=== PATIENT | female | born 1940 | race Caucasian/White ===

== ENCOUNTER 2020-07-09 09:22 | Outpatient (CLI) | payer MEDICARE ==
--- NOTE | 2020-07-09 10:14 | RAD ---
CHEST 2 VIEWS: Date: 07/09/2020 HISTORY: Dyspnea. FINDINGS: Total reverse left shoulder arthroplasty. Dorsal column stimulator leads overlie the lower mid thorac ic spine. Bilateral linear and interstitial parenchymal changes, having more the appearance of chroni c change. Mild left hemidiaphragm elevation. No confluent pneumonia, overt edema, or pleural effusion . Anterior cervical fusion changes lower cervical spine. IMPRESSION: 1. Evidence for bilateral chronic lung change. 2. No significant acute process. 3. Prominent atherosclerotic ectatic changes of aorta. 4. No old prior exams. POS: AH
== END 2020-07-09 09:23 | disposition home or self-care (01) ==
LOC: BICRAD 09:22
PROVIDERS: ATTEND Internal Medicine Critical Care Medicine
DX: R06.00 Dyspnea, unspecified (principal); I70.0 Atherosclerosis of aorta; I77.819 Aortic ectasia, unspecified site
CPT/HCPCS: 71046

== ENCOUNTER 2022-11-18 10:53 | Outpatient (CLI) | payer MEDICARE | END 2022-11-18 10:54 | disposition home or self-care (01) | LOC: RAD 10:53 | PROVIDERS: ATTEND Internal Medicine Critical Care Medicine | DX: R06.00 Dyspnea, unspecified (principal) | CPT/HCPCS: 71046 ==

== ENCOUNTER 2024-01-13 10:21 | Outpatient (CLI) | payer MEDICARE | END 2024-01-13 10:22 | disposition home or self-care (01) | LOC: RAD 10:21 | PROVIDERS: ATTEND Internal Medicine Critical Care Medicine | DX: R06.00 Dyspnea, unspecified (principal); M41.9 Scoliosis, unspecified; M12.811 Other specific arthropathies, not elsewhere classified, right shoulder; M89.8X1 Other specified disorders of bone, shoulder; S22.009A Unspecified fracture of unspecified thoracic vertebra, initial encounter for closed fracture | CPT/HCPCS: 71046 ==